=== PATIENT | female | born 1955 | race Two or more races ===

== ENCOUNTER 2023-04-04 05:23 | Emergency (ER) | payer OTHER ==
[~2023-04-04] VITALS: Ht 160 cm; Wt 49.4 kg
[2023-04-04 09:10] LABS: HEMATOCRIT 46.9 % (36.0-45.00); MEAN CELL VOLUME 95.6 fL (80.00-100.00); MEAN CORPUSCULAR HEMOGLOBIN 32.6 pg (27.00-32.0); MEAN CORPUSCULAR HGB CONC 34.1 g/dl (32.0-36.0); PLATELET COUNT 218 K/uL (150-450); RED CELL DISTRIBUTION WIDTH 13.2 % (11.5-14.5)
[2023-04-04] MEDS ORDERED: LEVALBUTEROL HCL 0.63 MG/3 ML SOLUTION IH ONE (09:30)
[2023-04-04 09:33] LABS: ABG PH 7.382 (7.35-7.45); ABG PO2 73.3 mmHg (80-100); ABG pCO2 45.2 mmHg (35-45); BASE EXCESS 0.8 mmol/l; BICARBONATE 26.3 mmol/l (23-25); SaO2 94.3 %; Tco2 27.7 mmol/l; allen test SATISFACTORY; o2 21 %; puncture site RADIAL LEFT
[2023-04-04] MEDS ORDERED: KETOROLAC TROMETHAMINE 60 MG VIAL IM STA (09:49)
[2023-04-04] MEDS ORDERED: METHYLPREDNISOLONE SOD SUCC 125 MG VIAL IV STA (09:50)
[2023-04-04 09:53] LABS: PH,URINE 5.5 (5.0-8.0); URINE APPEARANCE Cloudy; URINE BILIRRUBIN Negative (NEGATIVE); URINE BLOOD Small; URINE COLOR Yellow; URINE GLUCOSE Negative (NEGATIVE); URINE LEUKOCYTE Negative; URINE NITRATE Negative; URINE PROTEIN 30 (NEGATIVE); URINE UROBILINOGEN 0.2 E.U./dl
[2023-04-04 09:54] LABS: URINE BACTERIA 238.1 uL (0.0-1933); URINE EPITHELIAL CELLS 8.3 uL (0.0-38.8); URINE RBC 19.2 uL (0.0-20.8)
[2023-04-04] MEDS ORDERED: LevETIRAcetam 500 MG/5 ML VIAL IV STA (11:46)
[2023-04-04 12:13] LABS: CALCIUM 9.3 mg/dL (8.5-10.1); CREATININE SERUM 0.66 mg/dL (0.55-1.02); GFR 89.6; POTASSIUM 3.34 mEq/L (3.5-5.1)
== END 2023-04-04 13:03 | disposition home or self-care (01) ==
LOC: ER 05:23
PROVIDERS: General Practice
DX: G40.802 Other epilepsy, not intractable, without status epilepticus (principal); R53.81 Other malaise; Z88.0 Allergy status to penicillin
CPT/HCPCS: 36415; 70450; 82803; 96365; 96366; 96372; 99284; J1885; J2920